=== PATIENT | male | born 1950 | race Caucasian/White ===

== ENCOUNTER → 2017-03-09 | Outpatient (CLI) | payer MEDICARE, OTHER ==
[~2017-03-09] MED LIST: ALEVE PM CAPLE1 EACH PO; BREO ELLIPTA 11 EACH INH; CELEBREX400 MG PO; COCONUT OIL1000 MG PO; ECHINACEA500 MG PO; GABAPENTIN 100100 MG PO; HYDROCODON-ACE1 EAC7 PO; IRON325 PO; LIPITOR10 MG PO; LISINOPRIL-HCT1 EACH PO; MOBIC15 MG PO; NEURONTIN 300300 M1 PO; OMEPRAZOLE 20 M20 M1 PO; SINGULAIR 10 MG10 M1 PO; [UNRECOGNIZED DRUG - OTHER]
--- NOTE | 2017-03-22 10:11 | PAINCON ---
[address] [address] PAIN MANAGEMENT CONSULTATION Name: AMBIKA ESPOSITO Room: [facility]#: [id number] Admission: 03/09/17 Attend Phys: Larissa Keene MD Discharge: Date of : 46 Report #: [id number] THIS REPORT FOR: //name// CC: Vaughn Keene DATE OF SERVICE: 03/09/2017 CHIEF COMPLAINT: Pain in the arms and legs. HISTORY OF PRESENT ILLNESS: The patient is a 66-year-old gentleman who has been referred to the pain clinic for evaluation of back and leg pain. The patient states that he has been having pain and discomfort, which started in about 11/2016. He is having pain and discomfort, which radiates down into his legs on both sides, also has some discomfort in his arms with an achy sensation. Notes his pain is worse when he is sitting, lying down with activity as well as with bending. Sometimes it improves with certain activities. He describes it as periodic shooting, aching, and rates it as a 5 on some days. He denies any trauma. He has had some back surgery in the past, this was in 1964. He notes that because of this pain and discomfort, there is a stiffness. He is planning on going to the [facility] with his , daughter and son-in-law, and new in-laws. He has used a Medrol Dosepak and noticed that it helped, but has noted a return of his pain. He has used Meloxicam, gabapentin and sometimes uses Aleve. He would like to undergo an epidural steroid injection prior to his visit to the [facility]. The patient has undergone physical therapy ALLERGIES: PENICILLIN. CURRENT MEDICATIONS: Lipitor 10 mg daily, coconut oil 100 mg daily, echinacea 500 mg, iron 325 mg, Breo Ellipta 100/25 , Neurontin 100 mg t.i.d., hydrocodone 5/325 mg t.i.d., lisinopril 10/12.5 mg, Mobic 15 mg, Singulair 10 mg, Aleve, and omeprazole 20 mg. PAST MEDICAL HISTORY: Asthma, hypertension, and cancer of prostate. PAST SURGICAL HISTORY: Back surgery fall of 1964 and prostate surgery fall of 2006. SOCIAL HISTORY: He is retired in 2011, does substitute teaching. Pain impact score 21/70. REVIEW OF SYSTEMS: Questionnaire indicates generally good health, fatigue, weakness, wears glasses, asthma, wheezing, incontinence/dribbling, sexual difficulty, and numbness and tingling [place] [address] PAIN MANAGEMENT CONSULTATION Name: AMBIKA ESPOSITO [id number] Admission: 03/09/17 Attend Phys: Larissa Keene MD Discharge: Date of : 46 Report #: [id number] PHYSICAL EXAMINATION: GENERAL: The patient is a well-developed, well-nourished white male in no apparent distress. Appears his stated age. Oriented x 3. Affect appropriate. Speech is appropriate. VITAL SIGNS: Height 5 feet 11 inches, weight 185 pounds, BMI is 25. Blood pressure 130/68, heart rate 80, respiratory rate 16, room air saturation 97%, temperature 98. HEENT: Head is atraumatic. Extraocular eye muscles intact. No problems with his hearing. NOSE: without complaint or trauma. Buccal membranes are moist. Cconjunctiva is nonicteric. NECK: Without adenopathy. No bruits or appreciated. No masses. CHEST: Clear to auscultation. LUNGS: Clear. BACK: Extension is somewhat limited. Lumbar flexion to about 45 degrees. Left and right lateral bending, left and right lateral rotation are somewhat limited. The patient is kind of stiff. Muscle strength in the upper extremities, judged to be 5/5 in upper extremities. Deep tendon reflexes are +1 to trace and for the biceps, triceps, and brachioradialis bilaterally. He does complain of some upper muscle tenderness to palpation. The patient complains of some pain and discomfort radiating down into the L3-L4 distribution. PAIN CLINIC ASSESSMENT: 1. Osteoarthritis, no significant osteoarthritis or rheumatoid arthritis. 2. Pain intensity 7-4, average 3. Fall risk. The patient has not fallen over the last 3 months. He does not need assistance with ambulation. 4. The patient is not on a blood thinner. 5. The patient is not being treated for hypertension. 6. Opioid greater than 6 weeks. The patient has not been receiving opioids greater than 6 weeks. 7. Recreational drugs. The patient does not use recreational drugs. 8. Tobacco use. He does not use tobacco. 9. Alcoholic beverages, approximately 5 alcoholic beverages per week, maybe 1 per day. IMPRESSION 1. Lumbar radiculopathy, L3-L4 distribution at this juncture. 2. History of prostate cancer, 2007. 3. Hypercholesterolemia. 4. Asthma. 5. Hypertension. RECOMMENDATIONS: We discussed treatment options with the patient. Risks and benefits of an epidural steroid injection were discussed. Possible complications were reviewed. The patient states that he is going to go with his [address] [place] [address] PAIN MANAGEMENT CONSULTATION Name: AMBIKA ESPOSITO Room: [facility]#: [id number] Admission: 03/09/17 Attend Phys: Larissa Keene MD Discharge: Date of : 46 Report #: [id number] , daughter, and in-laws on a cruise. He would like to undergo an epidural steroid injection at this juncture to help decrease his pain and discomfort. He did receive a dose of steroids with a Medrol Dosepak. He found that this was helpful. At this juncture, he would like to undergo an epidural steroid injection with the hope that the pain in his legs would be improved. He will continue to take his current medications for hypertension as well as for his asthma. We discussed the risks and benefits of an epidural steroid injection. They could include but are not limited to infection, increased muscle soreness, headache, bleeding, nerve trauma, and increased muscle soreness. The patient has considered this and he elects to proceed. We have reviewed the patient's information regarding his EMGs. He agrees to proceeding. PROCEDURE NOTE 1: The patient was placed in the prone position. Fluoroscopy was used to identify the L3-L4 interspace. This area had been sterilely prepped with Betadine and infiltrated with 0.25% bupivacaine. Total of 80 mg Depo-Medrol, 40 mg triamcinolone and 2 mL of 0.25% bupivacaine was injected. The patient tolerated the procedure well. There were no complications. He remained in the pain clinic for an appropriate amount of time. He will follow up in the future as needed. Hopefully, he has a great time with his , daughter, son-in-law, and in-laws on their cruise. PROCEDURE NOTE 2: The patient was assisted to the fluoroscopy table. He was placed in the prone position. His back was sterilely prepped with a Betadine solution. 0.25% bupivacaine was infiltrated into this area. After appropriate use of a fluoroscopy machine using AP and lateral positioning, 0.25% bupivacaine was placed in the target area. This area had been sterilely prepped with Betadine and infiltrated with 0.25% bupivacaine. Again, after the needle had been appropriately placed, a total of 80 mg Depo-Medrol, 40 mg triamcinolone and 2 mL of 0.25% bupivacaine was injected. The patient tolerated the procedure well. There were no complications. He will follow up. A Band-Aid was placed in the appropriate site. There was no bleeding. He was then taken to the recovery room where he remained for an appropriate amount of time. He will follow up in the future as needed. <ELECTRONICALLY SIGNED> By: Larissa Keene MD 03/22/17 1011 1430 [id number]. Roberto Keene MD /[facility]
== END | disposition home or self-care (01) ==
LOC: M.PC 01:42
DX: M54.16 Radiculopathy, lumbar region (principal); I10 Essential (primary) hypertension; J45.909 Unspecified asthma, uncomplicated; E78.00 Pure hypercholesterolemia, unspecified; Z85.46 Personal history of malignant neoplasm of prostate; Z79.891 Long term (current) use of opiate analgesic; Z88.0 Allergy status to penicillin; Z79.899 Other long term (current) drug therapy; Z98.890 Other specified postprocedural states

== ENCOUNTER → 2017-03-23 | Outpatient (CLI) | payer MEDICARE, OTHER ==
--- NOTE | 2017-04-19 08:24 | PAINCON ---
[address] [address] PAIN MANAGEMENT CONSULTATION Name: AMBIKA ESPOSITO Room: [facility]#: [id number] Admission: 03/23/17 Attend Phys: Larissa Keene MD Discharge: Date of : 46 Report #: [id number] THIS REPORT FOR: //name// CC: Vaughn Keene DATE OF SERVICE: 03/23/2017 FOLLOWUP COMPLAINT: Had a good time on my vacation. FOLLOWUP HISTORY: The patient is a 66-year-old gentleman who has been seen in the Pain Clinic because of pain and discomfort involving his low back area. The patient suffers from spinal stenosis. He underwent an epidural steroid injection at the last visit. He went on his [place] cruise with his daughter, shar, and probable in-laws. They had a good time. He was able to engage in a lot of activities. Notes that his back felt much better. He was able to enjoy his stay. He noted also that the shoulders and arms were benefits of the epidural steroid injection. He noted less pain and discomfort in his arms. He does have pain and discomfort in his arms, which can be problematic when he gets up in the morning. As the day wears on, it improves somewhat. This stiffness and discomfort may be associated with arthritis. He has been taking Meloxicam. He denies any GI problems. He has had no problems with the gabapentin. He feels that another epidural steroid injection could be beneficial because of the pain and discomfort in his low back as well as continues to have some pain and discomfort on prolonged standing, which is consistent with his spinal stenosis symptomatology. ALLERGIES: PENICILLIN. CURRENT MEDICATIONS: Lipitor 10 mg daily, coconut oil 100 mg daily, Echinacea 500 mg, iron 325 mg, Breo Ellipta 100/25, Neurontin 100 mg t.i.d., hydrocodone 5/325 t.i.d., lisinopril 10/12.5 mg, Mobic 15 mg, Singulair 10 mg, Aleve, omeprazole 20 mg. PAIN CLINIC ASSESSMENT: 1. The patient has some signs of osteoarthritis in his upper shoulders. Has some pain and discomfort in the low back area and has had surgery in the back area. 2. Height 5 feet 11 inches, weight 189 pounds, BMI is 26. 3. Vital signs: Blood pressure 125/65, pulse 76, respiratory rate 16, room air saturation 98%, temperature 98.1. Pain intensity judged to be 5-6. 4. Fall risk. The patient has not fallen in the last 3 months. He feels like he is reasonably stable. 5. The patient is not on blood thinner. 6. History of hypertension. The patient is being [place] [address] PAIN MANAGEMENT CONSULTATION Name: AMBIKA ESPOSITO Room: [facility]#: [id number] Admission: 03/23/17 Attend Phys: Larissa Keene MD Discharge: Date of : 46 Report #: [id number] 7. Opioid therapy. The patient has found hydrocodone 5/325 mg 1 p.o. t.i.d. is helpful. 8. Risk assessment tool. 9. Functional assessment tool. 10. Recreational drug use, never. 11. Tobacco use, does not smoke. 12. Alcohol, drinks some alcoholic beverages nightly. PHYSICAL EXAMINATION: GENERAL: The patient is a well-developed white male. Appears his stated age. He is alert and oriented x 3. Speech is fluent. Affect is appropriate. HEENT: Head is atraumatic. Extraocular eye muscles intact. Hearing is good. Denies nasal problems or discharge. Buccal membranes are moist. NECK: Without adenopathy or masses. LUNGS: Clear to auscultation. HEART: Regular rate. ABDOMEN: Nontender. MUSCULOSKELETAL: The patient does have some slight bend and bent over stance when standing and walks somewhat bending forward. Does not have a true antalgic gait, but does walk slow and somewhat measured. The patient has noted some improvement in the pain and discomfort in the anterior portion and lateral portion of his thigh. This is in L3-L4 area. He notes that the pain was reasonably good, but has returned somewhat in this area and feels that another injection would be helpful. Muscle strength is judged to be 5/5 in the major muscle groups of the lower extremities. Lumbar flexion is about 45 degrees and limited. IMPRESSION: 1. Lumbar radiculopathy L3-L4 distribution at this juncture. 2. History of prostate cancer. 3. Osteoarthritis type discomfort in the left and right shoulder area with some rheumatoid for his presentation. 4. Hypercholesterolemia. 5. Asthma. 6. Hypertension. RECOMMENDATIONS: We discussed treatment options with the patient. Risks and benefits of another epidural steroid injection were discussed. Possible complications were reviewed. They could include but are not limited to infection, increased muscle soreness headache, bleeding, nerve trauma or worsening of pain. He elects to proceed with another epidural steroid injection given that he noticed a significant improvement after the last injection. He will continue with his Meloxicam. He is not having any GI complaints or components. Does note some occasional shooting pain down into his arms, but not in a radicular method, has some weakness and achiness associated with this. He agrees to proceed [place] [address] PAIN MANAGEMENT CONSULTATION Name: AMBIKA ESPOSITO [id number] Admission: 03/23/17 Attend Phys: Larissa Keene MD Discharge: Date of : 46 Report #: [id number] PROCEDURE NOTE: The patient was placed in the prone position. Fluoroscopy was used to identify the L2-L3 interspace. This area had been sterilely prepped with Betadine and infiltrated with 0.25% bupivacaine. Total of 80 mg Depo-Medrol, 40 mg triamcinolone and 2 mL of 0.25% bupivacaine was injected. The patient tolerated the procedure well. There were no complications. He remained in the Pain Clinic for an appropriate amount of time. We would like to thank you for letting us participate in his care. We hope he continues to improve. <ELECTRONICALLY SIGNED> By: Larissa Keene MD 04/19/17 0824 [id number] 2142N. Roberto Keene MD /nt
== END | disposition home or self-care (01) ==
LOC: M.PC 01:52
DX: M54.16 Radiculopathy, lumbar region (principal); M19.011 Primary osteoarthritis, right shoulder; M19.012 Primary osteoarthritis, left shoulder; E78.00 Pure hypercholesterolemia, unspecified; J45.909 Unspecified asthma, uncomplicated; I10 Essential (primary) hypertension; Z85.46 Personal history of malignant neoplasm of prostate; Z79.899 Other long term (current) drug therapy; Z98.890 Other specified postprocedural states; Z88.0 Allergy status to penicillin; Z79.891 Long term (current) use of opiate analgesic

== ENCOUNTER → 2017-05-02 | Outpatient (CLI) | payer MEDICARE, OTHER ==
--- NOTE | 2017-05-12 08:28 | PAINCON ---
[address] [address] PAIN MANAGEMENT CONSULTATION Name: AMBIKA ESPOSITO Room: [facility]#: [id number] Admission: 05/02/17 Attend Phys: Larissa Keene MD Discharge: Date of : 46 Report #: [id number] THIS REPORT FOR: //name// CC: Vaughn Keene DATE OF SERVICE: 05/02/2017 FOLLOWUP COMPLAINT: The pain has returned somewhat. FOLLOWUP HISTORY: The patient is a 66-year-old gentleman who has been seen in the pain clinic because of back and leg pain. He also has some pain and discomfort in the cervical area. He underwent an epidural steroid injection and gleaned benefits from this. As you may recall, he went to the [facility] area. He was able to engage in activities and enjoyed himself. At this juncture, he has noted a recurrence of pain and discomfort in his low back area with some numbness and noted increased discomfort in his neck and arms area. He feels that the pain is still most prominent and problematic in his lower extremities. At this juncture, he would like to proceed with another cervical epidural steroid injection. He denied any complications with the injection in the past. Rates his pain as a 5-7 in the low back area involving his legs. ALLERGIES: PENICILLIN. MEDICATIONS: Reviewed indicate, continued use of Lipitor 10 mg daily, coconut oil 100 mg daily, Echinacea 500 mg, iron 325 mg, Breo Ellipta, Neurontin 100 mg t.i.d., hydrocodone 5/325 t.i.d., lisinopril 10/12.5, Mobic 15 mg, Singulair 10 mg, Aleve, omeprazole 20 mg. PAIN CLINIC ASSESSMENT: 1. The patient does have some osteoarthritic changes in his low back, as well as in his knee. 2. Height 5 feet 11 inches, weight 185 pounds, BMI is 25. 3. Vital signs, blood pressure 130/68, heart rate 80, respiratory rate 16, room air saturation 97%, temperature 98. Pain intensity 5-7/10. 4. Fall risk. The patient has not fallen in the last 3 months. 5. Blood thinner, the patient is not on blood thinner. 6. Hypertension. The patient is being treated for hypertension. 7. Opioid therapy greater than 6 weeks. The patient is not on opioid therapy on a regular basis, but has used hydrocodone episodically to help control his pain. 8. Risk assessment tool. 9. Functional assessment tool. 10. Recreational drug use. The patient denies use of recreational drugs. 11. Tobacco: The patient denies use of tobacco, alcohol. The patient denies frequent use [place] [address] PAIN MANAGEMENT CONSULTATION Name: AMBIKA ESPOSITO Room: [facility]#: [id number] Admission: 05/02/17 Attend Phys: Larissa Keene MD Discharge: Date of : 46 Report #: [id number] PHYSICAL EXAMINATION: GENERAL: The patient is a well-developed, well-nourished white male. Does not appear in any apparent distress. Appearance: The patient appears his stated age. Orientation: The patient is alert and oriented x 3. Affect: The patient's affect is appropriate. Speech is fluent. VITAL SIGNS: As listed above. HEENT: Normocephalic, atraumatic. Extraocular eye muscles intact. The patient has no problems with hearing. No complaints of sinus problems. Buccal membranes are moist Conjunctivae are nonicteric. NECK: Without adenopathy. No bruits are appreciated. No masses. The patient does complain of some pain and discomfort with pain radiating down into his arms and into his hands. CHEST: Clear to auscultation. BACK: The patient has somewhat limited movement in his back. Is able to flex to about 45 degrees. The patient walks with a somewhat forward leaning positioning. Appears to have some limitation in the lower back area secondary to stiffness and arthritic changes. Deep tendon reflexes are +1 at the knees. Has some complaint of upper muscle tenderness with palpation in the shoulder and deltoid, and forearm areas. Complains of pain, which radiates in the L3-L4 distribution. IMPRESSION: 1. History of lumbar radiculopathy in the L3-L4 distribution improved after epidural steroid injections in the past. 2. History of prostate cancer in 2006. 3. Upper extremity cervical radicular symptoms. Less problematic than those in the lumbar area. 4. Hypercholesterolemia. 5. Asthma. 6. Hypertension. RECOMMENDATIONS: We discussed treatment options with the patient. Risks and benefits of an epidural steroid injection were again discussed. The patient feels that the pain in his lower extremity is more problematic than that of the upper area. He noted about 70% improvement in the upper cervical region after the last epidural steroid injection. Therefore, he would like to proceed with an epidural steroid in the lower back area again today. We discussed the risks and benefits of an epidural steroid injection. They include but are not limited to infection, increased muscle soreness, headache, bleeding, nerve trauma, increased muscle soreness, worsening of pain or no change in the pain. The patient elects to proceed. PROCEDURE NOTE: The patient was placed in the prone position. Fluoroscopy was used to identify the L3-L4 interspace. This area had been sterilely prepped with Betadine and infiltrated with 0.25% bupivacaine. Total of 80 [place] [address] PAIN MANAGEMENT CONSULTATION Name: AMBIKA ESPOSITO Room: [facility]#: [id number] Admission: 05/02/17 Attend Phys: Larissa Keene MD Discharge: Date of : 46 Report #: [id number] Depo-Medrol, 40 mg triamcinolone and 2 mL of 0.25% bupivacaine was injected. The patient tolerated the procedure well. There were no complications. He remained in the pain clinic for an appropriate amount of time. He will follow up in the future as needed. Hopefully, the patient will continue to improve. We may consider cervical epidural steroid injections in the future should he continue to have cervical radicular symptoms. We would like to thank you for letting us participate in his care. We hope he continues to improve. <ELECTRONICALLY SIGNED> By: Larissa Keene MD 05/12/17 0828 [id number]. Roberto Keene MD /nt
== END | disposition home or self-care (01) ==
LOC: M.PC 00:28
DX: M54.16 Radiculopathy, lumbar region (principal); I10 Essential (primary) hypertension; E78.00 Pure hypercholesterolemia, unspecified; J45.909 Unspecified asthma, uncomplicated; M54.12 Radiculopathy, cervical region; Z85.46 Personal history of malignant neoplasm of prostate; Z88.0 Allergy status to penicillin; Z79.899 Other long term (current) drug therapy; Z79.891 Long term (current) use of opiate analgesic